=== PATIENT | female | born 1930 | race Two or more races ===

== ENCOUNTER 2021-05-22 15:49 | Emergency (ER) | payer MEDICARE, MEDICAID ==
[~2021-05-22] VITALS: Ht 162.6 cm; Wt 49.9 kg
[2021-05-22 18:30] LABS: Basophils # (auto) 0 10 ^3/uL (0-0.2); Basophils % (auto) 0.3 % (0.0-2.0); Eosinophils # (auto) 0.1 10 ^3/uL (0-0.8); Eosinophils % (auto) 1.3 % (0.0-7.0); Hematocrit 34.9 % (36.0-46.0); Hemoglobin 11.7 g/dL (12.2-16.2); Lymphocytes # (auto) 0.9 10 ^3/uL (0.4-5.4); Lymphocytes % (auto) 19.9 % (10.0-50.0); Mean Corpuscular Hemoglobin 28.8 pg (28.0-32.0); Mean Corpuscular Hgb Conc. 33.5 g/dL (32.0-36.0); Monocytes # (auto) 0.4 10 ^3/uL (0-1.3); Monocytes % (auto) 9.3 % (0.0-12.0); Neutrophils # (auto) 3.2 10 ^3/uL (1.6-8.6); Neutrophils % (auto) 69.2 % (37.0-80.0); Nucleated Red Blood Cells % 0.2 %; Red Blood Cells 4.07 10^6/uL (4.0-5.20); Red Cell Distribution Width 14.9 % (11.8-14.3); White Blood Cell 4.6 10^3/uL (4.4-10.8)
[2021-05-22 18:50] LABS: Albumin 2.7 g/dL (3.4-5.0); BUN/Creatinine Ratio 33.8; Calcium 8.1 mg/dL (8.5-10.1); Potassium 4.6 mmol/L (3.5-5.1)
[2021-05-22 19:05] LABS: Bilirubin, Total 0.2 mg/dL (0.2-1.0); Total Protein 6.1 g/dL (6.4-8.2)
[2021-05-22 22:43] LABS: Urine Bacteria NONE SEEN /hpf (None Seen); Urine Blood Negative /uL (Negative); Urine Specific Gravity 1.018 (1.001-1.035); Urine WBC 1 /hpf (0 - 5)
[2021-05-22 23:00] VITALS: BP 129/86
== END 2021-05-22 23:25 | disposition short-term general hospital (02) ==
LOC: EDBD 15:49 → ER 15:53
DX: S12.110A Anterior displaced Type II dens fracture, initial encounter for closed fracture (principal); I11.0 Hypertensive heart disease with heart failure; I50.9 Heart failure, unspecified; Z20.822 Contact with and (suspected) exposure to COVID-19; W18.39XA Other fall on same level, initial encounter; Y93.89 Activity, other specified; Y92.89 Other specified places as the place of occurrence of the external cause; Y99.8 Other external cause status
CPT/HCPCS: 36415; 70450; 71250; 72125; 80053; 81001; 84484; 85025; 93005

== ENCOUNTER 2021-07-10 13:36 | Emergency (ER) | payer MEDICARE, MEDICAID ==
[~2021-07-10] VITALS: Ht 157.5 cm; Wt 50.3 kg
[2021-07-10] MEDS ORDERED: HYDROcodone-ACET 5/325MG TAB PO ONE (14:00)
[2021-07-10 14:34] LABS: Basophils # (auto) 0 10 ^3/uL (0-0.2); Basophils % (auto) 0.9 % (0.0-2.0); Eosinophils # (auto) 0.1 10 ^3/uL (0-0.8); Eosinophils % (auto) 1.7 % (0.0-7.0); Hematocrit 33.3 % (36.0-46.0); Hemoglobin 11.5 g/dL (12.2-16.2); Lymphocytes # (auto) 0.7 10 ^3/uL (0.4-5.4); Lymphocytes % (auto) 18.7 % (10.0-50.0); Mean Corpuscular Hemoglobin 30.2 pg (28.0-32.0); Mean Corpuscular Hgb Conc. 34.4 g/dL (32.0-36.0); Mean Corpuscular Volume 87.8 fL (80.0-100.0); Monocytes # (auto) 0.4 10 ^3/uL (0-1.3); Monocytes % (auto) 10.4 % (0.0-12.0); Neutrophils # (auto) 2.5 10 ^3/uL (1.6-8.6); Neutrophils % (auto) 68.3 % (37.0-80.0); Nucleated Red Blood Cells % 0.1 %; Red Cell Distribution Width 14.6 % (11.8-14.3); White Blood Cell 3.7 10^3/uL (4.4-10.8)
[2021-07-10 14:52] LABS: Albumin 2.9 g/dL (3.4-5.0); Calcium 8.6 mg/dL (8.5-10.1); Potassium 4.4 mmol/L (3.5-5.1)
[2021-07-10 15:01] LABS: BUN/Creatinine Ratio 27.5; Bilirubin, Total 0.3 mg/dL (0.2-1.0); Total Protein 6.4 g/dL (6.4-8.2)
[2021-07-10 16:00] VITALS: BP 125/70
== END 2021-07-10 16:00 | disposition home or self-care (01) ==
LOC: ER 13:36 → EDBD 13:36 → ER 16:00
DX: R51.9 Headache, unspecified (principal); S12.1 Fracture of second cervical vertebra; I11.0 Hypertensive heart disease with heart failure; I50.9 Heart failure, unspecified; K21.9 Gastro-esophageal reflux disease without esophagitis; Z87.891 Personal history of nicotine dependence; X58.XXXS Exposure to other specified factors, sequela
CPT/HCPCS: 36415; 70450; 72125; 80053; 85025

== ENCOUNTER 2021-07-19 09:00 | Emergency (ER) | payer MEDICARE, MEDICAID ==
[~2021-07-19] VITALS: Ht 162.6 cm; Wt 54.9 kg
[2021-07-19] MEDS ORDERED: ADENOSINE 6 MG/2 ML INJ IV ONE (09:01)
[2021-07-19] MEDS ORDERED: SODIUM CHLORIDE 0.9% 1,000 ML IV ONE ×2 (10:15→14:30)
[2021-07-19 11:06] LABS: Basophils # (auto) 0 10 ^3/uL (0-0.2); Basophils % (auto) 0.3 % (0.0-2.0); Eosinophils # (auto) 0 10 ^3/uL (0-0.8); Eosinophils % (auto) 0.1 % (0.0-7.0); Hematocrit 32.7 % (36.0-46.0); Hemoglobin 10.5 g/dL (12.2-16.2); Lymphocytes # (auto) 0.6 10 ^3/uL (0.4-5.4); Lymphocytes % (auto) 5.4 % (10.0-50.0); Mean Corpuscular Hemoglobin 29.5 pg (28.0-32.0); Mean Corpuscular Hgb Conc. 32.1 g/dL (32.0-36.0); Mean Corpuscular Volume 91.8 fL (80.0-100.0); Monocytes # (auto) 0.6 10 ^3/uL (0-1.3); Monocytes % (auto) 5.8 % (0.0-12.0); Neutrophils # (auto) 9.9 10 ^3/uL (1.6-8.6); Neutrophils % (auto) 88.4 % (37.0-80.0); Red Blood Cells 3.57 10^6/uL (4.0-5.20); Red Cell Distribution Width 15.1 % (11.8-14.3); White Blood Cell 11.2 10^3/uL (4.4-10.8)
[2021-07-19 11:49] LABS: Potassium 4.5 mmol/L (3.5-5.1)
[2021-07-19 11:50] LABS: Albumin 2.7 g/dL (3.4-5.0); BUN/Creatinine Ratio 22.2; Bilirubin, Total 0.7 mg/dL (0.2-1.0); Total Protein 6.5 g/dL (6.4-8.2)
[2021-07-19] MEDS ORDERED: ONDANSETRON HCL 4 MG/2 ML VIAL IV ONE (13:30)
[2021-07-19] MEDS ORDERED: MORPHINE SULFATE 4 MG/ML SYR/VIAL IV ONE (13:30)
[2021-07-19] MEDS ORDERED: NALOXONE HCL 1MG/ML 2ML SYRINGE ONE ×2 (14:10→14:17)
[2021-07-19] MEDS: NOREPINEPHRINE 8 MG/250ML KIT 250 ML IV SCH ×2 (14:15→14:30)
[2021-07-19] MEDS ORDERED: methylPREDNISolone SOD SUCC 125 MG/2 ML VL ONE (14:23)
[2021-07-19] MEDS ORDERED: dilTIAZem 25 MG/5 ML VIAL IV ONE ×2 (14:24→14:30)
[2021-07-19] MEDS ORDERED: NOREPINEPHRINE 8 MG/250ML KIT 250 ML IV ONE (14:24)
[2021-07-19] MEDS ORDERED: methylPREDNISolone SOD SUCC 125 MG/2 ML VL IV ONE (14:30)
[2021-07-19] MEDS ORDERED: NALOXONE HCL 1MG/ML 2ML SYRINGE IV ONE ×2 (14:30)
[2021-07-19] MEDS ORDERED: metroNIDAZOLE 500MG/100ML 100 ML IV ONE (14:45)
[2021-07-19] MEDS ORDERED: SODIUM CHLORIDE 0.9% 2,000 ML IV ONE (14:45)
[2021-07-19] MEDS ORDERED: cefTRIAXone 1GM/50ML D5W 50 ML IV ONE (14:45)
[2021-07-19 14:51] LABS: Urine Bacteria FEW /hpf (None Seen); Urine Blood 2+ /uL (Negative); Urine Budding Yeast MODERATE /hpf (None Seen); Urine Mucus FEW (None Seen); Urine Specific Gravity 1.018 (1.001-1.035); Urine WBC 2172 /hpf (0 - 5); Urine WBC Clumps PRESENT /hpf (None Seen)
[2021-07-19] MEDS ORDERED: MIDAZOLAM DRIP 50 mg/50mL 50 ML IV ONE (15:56)
[2021-07-19] MEDS ORDERED: ETOMIDATE (2MG/ML) 20ML VIAL IV ONE (15:57)
[2021-07-19] MEDS ORDERED: DOPamine 1600MCG/ML D5W 250 ML IV ONE (15:59)
[2021-07-19] MEDS ORDERED: EPINEPHrine HCL 250 ML IV ONE (16:25)
[2021-07-19] MEDS ORDERED: SODIUM BICARBONATE 8.4% INJ 50ML SYRINGE ONE (16:34)
[2021-07-19 16:42] VITALS: BP 54/29
[2021-07-19] MEDS ORDERED: MAGNESIUM SULFATE 1GM/100ML 100 ML IV ONE (16:42)
[2021-07-19] MEDS ORDERED: EPINEPHrine HCL 1 MG/10 ML SYRG ONE (16:45)
== END 2021-07-19 16:57 ==
LOC: ER 09:00 → EDBD 09:00 → ER 16:57
DX: A41.9 Sepsis, unspecified organism (principal); I48.91 Unspecified atrial fibrillation; I48.92 Unspecified atrial flutter; I95.9 Hypotension, unspecified; M13.88 Other specified arthritis, other site; R41.82 Altered mental status, unspecified; R06.89 Other abnormalities of breathing; Z88.6 Allergy status to analgesic agent; Z88.8 Allergy status to other drugs, medicaments and biological substances; Z20.822 Contact with and (suspected) exposure to COVID-19
CPT/HCPCS: 31500; 36415; 36556; 36600; 51702; 72040; 74176; 80053; 81001; 82805; 82962; 83605; 85025; 87040; 87070; 87205; 87426; 92950; 93005; 96361; 96365; 96368; 96375; 96376; 99291; 99292; J0153; J0171; J0696; J1265; J2250; J2270; J2310; J2405; J2930; J3475; J3490; J7030; 94002